=== PATIENT | male | born 1960 | race American Indian/Alaskan Native ===

== ENCOUNTER 2018-02-05 07:40 | Outpatient (CLI) | payer BC ==
--- NOTE | 2018-02-05 12:04 | Cat Scan Report ---
CT abdomen and pelvis without contrast: Prostate cancer. Transverse images are obtained from lower chest to the ischium with coronal and sagittal 2-D reformatted images. Oral but no IV contrast administered. Imaging of the visualized lung bases demonstrates some emphysematous appearing lung changes and linear scarlike deformities with mild calcified pleural thickening on the left. The abdominal and retroperitoneal organs appear unremarkable including the aorta. There is no periaortic or mesenteric adenopathy appreciated. The partially opacified bowel appears generally unremarkable except for a relatively prominent load of fecal matter in the ascending colon. Images of the pelvis demonstrates an enlarged prostate measuring approximately 4.9 x 5.4 x 7.1 cm. There is mild indentation into the mid and left base of the bladder. There is no obvious thickening of the bladder wall elsewhere. No lytic or blastic bone lesions identified. Impressions: 1. Large prostate. Focal bladder compression/involvement. 2. No metastatic lesions identified. 3. Chronic lung/pleural changes.
--- NOTE | 2018-02-05 12:10 | Nuclear Medicine Report ---
Whole body bone scan: Prostate malignancy. Following injection of radionuclide imaging of the whole body images obtained at 3 hours. There is normal activity in the urinary tract with good bone to background ratio. There is a focal area of increased radio tracer uptake involving the medial right tibial plateau and a couple areas in the left knee. 2 relatively mild increased areas of uptake are also noted involving the medial distal left leg. There appear to be more likely lie in the soft tissues. With these exceptions no abnormal activity is identified. Impression: Unexplained activity in the distal left leg. Low suspicion of metastatic disease. Recommendation: Correlate increased leg activity with any clinical findings.
== END 2018-02-05 07:41 | disposition home or self-care (01) ==
LOC: NM 07:40
PROVIDERS: ATTEND Urology
DX: C61 Malignant neoplasm of prostate (principal); N40.0 Benign prostatic hyperplasia without lower urinary tract symptoms
CPT/HCPCS: 74176; 78306; A9503

== ENCOUNTER 2018-05-10 06:21 | Inpatient (IN) | payer BC ==
--- NOTE | 2018-04-26 09:42 | Anesthesia Consultation ---
Anesthesia Consult and Med Hx Date of service: 05/10/18 - Airway Anesthetic Teeth Evaluation: Good ROM Head & Neck: Adequate Mental/Hyoid Distance: Adequate Mallampati Class: Class II Intubation Access Assessment: Good - Pulmonary Exam CTA: Yes - Cardiac Exam Cardiac Exam: No Murmur - Pre-Operative Health Status ASA Pre-Surgery Classification: ASA2, ASA3 Proposed Anesthetic Plan: General Nerve Block: TAP - Pulmonary Hx Smoking: Yes (STOPPED X 22 YRS) Hx Sleep Apnea: Yes (DX SLEEP APNEA WITH CPAP USE.) - Cardiovascular System Hx Hypertension: Yes (X 15 YRS)
[2018-04-26 10:19] LABS: Basophils % (Auto) 0.6 % (0.0-1.8); Eosinophils # (Auto) 0.2 K/mm3 (0.0-0.4); Eosinophils % (Auto) 4.4 % (0.0-4.3); Hematocrit 40.6 % (35.5-45.6); Hemoglobin 13.5 gm/dl (11.8-15.2); Lymphocytes # (Auto) 1.3 K/mm3 (1.2-5.4); Lymphocytes % (Auto) 26.3 % (13.4-35.0); Mean Corpuscular HGB Conc 33 % (32-34); Mean Corpuscular Hemoglobin 29 pg (28-32); Mean Corpuscular Volume 88 fl (84-94); Monocytes # (Auto) 0.4 K/mm3 (0.0-0.8); Monocytes % (Auto) 8.2 % (0.0-7.3); Platelet Count 210 K/mm3 (140-440); Red Blood Count 4.62 M/mm3 (3.65-5.03); Red Cell Distribution Width 13.3 % (13.2-15.2)
[2018-04-26 10:29] LABS: INR 0.94 (0.87-1.13); Partial Thromboplastin Time 24.9 Sec. (24.2-36.6)
[2018-04-26 10:38] LABS: Alanine Aminotransferase 19 units/L (7-56); BUN/Creatinine Ratio 12; Blood Urea Nitrogen 11 mg/dL (9-20); Calcium 8.9 mg/dL (8.4-10.2); Hemolysis Index 15
[~2018-05-10 06:21] MED LIST: ANCEF/STERILE WATER 2 GM/20 ML IV NR; LACTATED RINGERS 1,000 ML IV SCH; PEPCID PO NR; VERSED IV NR
[2018-05-10] MEDS ORDERED: NACL BACTERIOSTATIC INFILTRATI ONE (06:24)
[2018-05-10] MEDS ORDERED: NAROPIN O.5% ONE (07:15)
[2018-05-10] MEDS ORDERED: SUBLIMAZE ONE ×2 (07:16→07:34)
[2018-05-10] MEDS ORDERED: VERSED ONE (07:34)
[2018-05-10] MEDS ORDERED: QUELICIN ONE (07:34)
[2018-05-10] MEDS ORDERED: ZEMURON IV ONE (07:34)
[2018-05-10] MEDS ORDERED: XYLOCAINE MPF 2% ONE ×2 (07:34→10:00)
[2018-05-10] MEDS ORDERED: DIPRIVAN 10 MG/ML IV ONE (07:35)
[2018-05-10] MEDS ORDERED: CALCIUM CHLORIDE IV ONE ×2 (07:46→11:07)
[2018-05-10] MEDS ORDERED: ACD-A 500 ML IV ONE (07:46)
[2018-05-10] MEDS ORDERED: METHYLENE BLUE ONE (07:46)
[2018-05-10] MEDS ORDERED: THROMBIN (BOVINE) TP ONE ×2 (07:47→11:07)
--- NOTE | 2018-05-10 08:00 | Anesthesia Day of Surgery ---
Anesthesia Day of Surgery - Day of Surgery Patient Examined: Yes Patient H&P Reviewed: Yes Patient is NPO: Yes
[2018-05-10] MEDS ORDERED: DILAUDID IV PRN ×3 (08:01→13:45)
[2018-05-10] MEDS ORDERED: DEMEROL IV PRN ×2 (08:01→13:45)
[2018-05-10] MEDS ORDERED: TORADOL IV PRN (08:01)
[2018-05-10] MEDS ORDERED: NARCAN 0.4 MG/1 ML IV PRN ×2 (08:01→11:11)
[2018-05-10] MEDS ORDERED: ZOFRAN IV PRN ×3 (08:01→13:45)
[2018-05-10] MEDS ORDERED: ePHEDrine 50 MG/5 ML-0.9% NACL IV ONE (08:27)
[2018-05-10] MEDS ORDERED: LACTATED RINGERS 1,000 ML ONE (08:34)
[2018-05-10] MEDS ORDERED: ZOFRAN ONE (10:00)
[2018-05-10] MEDS ORDERED: PROAIR IH ONE (10:00)
[2018-05-10] MEDS ORDERED: NACL 0.9% 1000 ML 1,000 ML ONE (10:04)
[2018-05-10] MEDS ORDERED: ROBINUL ONE (10:42)
[2018-05-10] MEDS ORDERED: BLOXIVERZ ONE (10:42)
[2018-05-10] MEDS ORDERED: WATER FOR IRRIG STERILE IR ONE (11:07)
[2018-05-10] MEDS ORDERED: NACL 0.9% IR ONE (11:07)
[2018-05-10] MEDS ORDERED: ACD-A IV ONE (11:07)
--- NOTE | 2018-05-10 11:11 | Short Stay Summary ---
Short Stay Documentation Date of service: 05/10/18 - History H&P: obtained from office - Allergies and Medications Current Medications: Allergies No Known Allergies Allergy (Verified 04/22/18 17:12) Home Medications Medication Instructions Recorded Confirmed Last Taken Type Aspirin [Lo-Dose Aspirin EC] 81 mg PO DAILY 04/22/18 05/10/18 2 Weeks Ago History ~04/26/18 Atenolol [Tenormin] 50 mg PO DAILY 04/22/18 04/22/18 05/10/18 04:30 History Bicalutamide [Casodex] 50 mg PO DAILY 04/22/18 04/22/18 05/09/18 History Pantoprazole [Protonix] 40 mg PO QDAY 04/22/18 04/22/18 05/09/18 History amLODIPine/ATORVASTATIN 1 tab PO DAILY 04/22/18 04/22/18 05/10/18 04:30 History [Amlodipine-Atorvast 2.5-20 mg] Active Medications Cefazolin Sodium (Ancef/Sterile Water 2 Gm/20 Ml) 2 gm IV PREOP NR Stop: 05/10/18 23:59 Famotidine (Pepcid) 20 mg PO PREOP NR Stop: 05/10/18 12:00 Last Admin: 05/10/18 06:45 Dose: 20 mg Hydromorphone HCl (Dilaudid) 0.25 mg IV Q10MIN PRN PRN Reason: Pain, Moderate (4-6) Stop: 05/10/18 12:00 Hydromorphone HCl (Dilaudid) 0.5 mg IV Q10MIN PRN PRN Reason: Pain , Severe (7-10) Stop: 05/10/18 13:00 Lactated Ringer's (Lactated Ringers) 1,000 mls @ 100 mls/hr IV DIRECT ROSIBEL Last Admin: 05/10/18 07:00 Dose: 100 mls/hr Ketorolac Tromethamine (Toradol) 30 mg IV ONCE PRN PRN Reason: Pain, Moderate (4-6) Stop: 05/10/18 13:00 Meperidine HCl (Demerol) 25 mg IV ONCE PRN PRN Reason: Shivering Stop: 05/10/18 13:00 Midazolam HCl (Versed) 2 mg IV PREOP NR Stop: 05/10/18 18:00 Last Admin: 05/10/18 07:25 Dose: 2 mg Naloxone HCl (Narcan 0.4 Mg/1 Ml) 0.1 mg IV Q2MIN PRN PRN Reason: Res Rate </= 8 or 02 SAT < 92% Stop: 05/10/18 13:00 Ondansetron HCl (Zofran) 4 mg IV ONCE PRN PRN Reason: Nausea And Vomiting Stop: 05/10/18 13:00 - Brief post op/procedure progress note Date of procedure: 05/10/18 Pre-op diagnosis: prostate cancer (psa 34, xin 6) Post-op diagnosis: same Procedure: robotic prostatectomy Anesthesia: GETA Surgeon: STEFAN HUTCHINSON Casting Machine Operator Automatic: OSCAR SAUCEDO Estimated blood loss: other (450cc) Pathology: list (prostate) Specimen disposition: to lab Condition: stable - Hospital course Hospital course: judi joy,post op info on chart - Disposition Condition at discharge: Stable Disposition: DC-01 TO HOME OR SELFCARE Short Stay Discharge Plan Follow up with: EDILMA CANALES MD [Primary Care Provider] - 7 Days
--- NOTE | 2018-05-10 11:49 | Operative Report ---
PREOPERATIVE DIAGNOSIS: Prostate cancer ([place] 6, PSA 34). POSTOPERATIVE DIAGNOSIS: Prostate cancer ([place] 6, PSA 34). PROCEDURE: Robotic-assisted laparoscopic prostatectomy. SURGEON: Efrain Trevino MD WET MIX OPERATOR: Clinton Queen. ANESTHESIA: General. ESTIMATED BLOOD LOSS: 450 mL. FLUIDS: Crystalloid 225 of Cell Saver. COMPLICATIONS: None. DRAINS: Efraín-Ribeiro drain x 1. INDICATIONS: This 58-year-old gentleman referred by Dr. eKnneth Salazar for evaluation of an elevated PSA of 30. We repeated the PSA, it was 34. He underwent transrectal ultrasound and biopsy of his prostate 01/14/2018. He was found to have [place] 6 adenocarcinoma of the prostate. Ultrasound revealed gram gland. Staging bone scan and CT was unremarkable. We discussed options with the patient and his . Recommended not observing this cancer and therefore, after discussing other options he agreed to proceed with surgical intervention. He wanted to delay the surgery until April and he was subsequently placed on Casodex. DESCRIPTION OF PROCEDURE: The patient was taken to the operative suite, placed in a supine position. After adequate general anesthesia, placed in a modified dorsal lithotomy position, prepped and draped in a sterile fashion. Thakkar catheter was placed on the operative field. A 1 inch supraumbilical incision was made. Towel clips were placed. Anterior traction. Veress needle was placed. Drop test was negative. Opening pressure was 2 cm of water. Insufflation to 15 cm of water was performed. Abdomen was marked at the pubic symphysis, 15 cm cephalad, the pubic symphysis in the midline, and additional 9 cm lateral were marked for the robotic and helper ports. A 0-degree lens was placed under direct vision at the supraumbilical incision. Survey of the abdomen. No intraabdominal injury, no signs of metastasis. The rest of the instruments were placed under direct vision. Robotic cart was docked between the legs. The patient was then placed in exaggerated Trendelenburg position. Second arch was scored exposing the bladder, seminal vesicles and vas deferens, which were dissected out. Vas test deferens was transected. Dissection was then taken to the apex of the prostate. Attention was then taken anteriorly lateral to the lateral umbilical ligament was scored and then across the midline. Bladder flap was dropped. Pubic rami could be appreciated bilaterally. Endopelvic fascia was opened bilaterally. The patient was noted to have a pretty significant size prostate. Dorsal vein complex was controlled with 65 mm vascular stapler in the area of the vas deferens posterior to the bladder. Merrill was injected due to some just mild oozing. Dorsal vein complex was controlled. Bladder neck was opened without difficulty. Methylene blue was administered IV and the ureteral orifices could be appreciated. Posterior aspect of the bladder neck was transected. Seminal vesicles and vas deferens were retracted anteriorly exposing the lateral pedicles, which was controlled with a 45 mm vascular stapler. Neurovascular bundle could not be appreciated bilaterally. Dissection was taken to the apex of the prostate. The urethra was transected exposing the Thakkar, which was pulled back. The urethra was completely transected and the prostate was placed in the EndoCatch bag and retracted laterally. [place] stitch was placed in the 12 o'clock position of the bladder neck. Bladder neck reconstruction was performed using 2-0 Vicryl at the 7 o'clock and 5 o'clock positions. Double armed V-Loc stitch was placed at the 6 o'clock position of the bladder neck corresponding aspect of the urethra, running stitch was performed bilaterally. A new 18-Kitt[place] Thakkar catheter was placed into the urethra and the bladder. The anastomotic stitch was cinched down. Thakkar catheter was inflated with 15 mL of water. Irrigation, no leak, no clots. The V-Loc stitch was also attached to the abdominal wall to aid incontinence. Copious irrigation was performed. Adequate hemostasis achieved. Platelet rich plasma membrane was draped over the anastomosis. Platelet rich plasma fluid was injected into the pelvis as well as platelet, poor plasma injected into the pelvis. A 10 mm Efraín-Ribeiro drain was brought out through a number of the robotic port on the left side. Robot was undocked. The patient was placed in a supine position. The supraumbilical incision was extended to allow removal of the prostate. Rectus fascia was closed with #1 Vicryl in a [id number] fashion. Skin was closed with 3-0 Monocryl in interrupted fashion. Efraín-Ribeiro drain was secured with a 2-0 silk on the skin. Thakkar catheter site port was folded over and tied with #1 silk in interrupted fashion. The patient tolerated the procedure well, was extubated and taken to recovery room. He will be observed overnight and go home on Luke. JOB# [id number] SARAH/RODRÍGUEZ
[2018-05-10] MEDS ORDERED: ANCEF/NS 1 GM/50 ML 1 GM/50 ML BAG IV SCH (12:00)
[2018-05-10 13:33] LABS: Basophils % (Auto) 0.1 % (0.0-1.8); Eosinophils # (Auto) 0.1 K/mm3 (0.0-0.4); Eosinophils % (Auto) 0.8 % (0.0-4.3); Hematocrit 36.8 % (35.5-45.6); Hemoglobin 12.3 gm/dl (11.8-15.2); Lymphocytes # (Auto) 1.2 K/mm3 (1.2-5.4); Lymphocytes % (Auto) 9.9 % (13.4-35.0); Mean Corpuscular HGB Conc 33 % (32-34); Mean Corpuscular Hemoglobin 30 pg (28-32); Mean Corpuscular Volume 88 fl (84-94); Monocytes # (Auto) 0.6 K/mm3 (0.0-0.8); Monocytes % (Auto) 4.5 % (0.0-7.3); Platelet Count 196 K/mm3 (140-440); Red Blood Count 4.17 M/mm3 (3.65-5.03); Red Cell Distribution Width 13.3 % (13.2-15.2)
[2018-05-10] MEDS: MORPHINE IV PRN ×2 (13:34→17:33)
[2018-05-10 13:42] LABS: BUN/Creatinine Ratio 12; Blood Urea Nitrogen 11 mg/dL (9-20); Calcium 8.2 mg/dL (8.4-10.2); Hemolysis Index 65
--- NOTE | 2018-05-10 14:07 | Post Anesthesia Evaluation ---
- Post Anesthesia Evaluation Patient Participated: Yes Airway Patent: Yes Stable Respiratory Function: Yes Nausea/Vomiting: No Temp > 96.8F: Yes Pain Manageable: Yes Adequeate Hydration: Yes Anesthesia Complications: No
[2018-05-10] MEDS: ceFAZolin 1 GM in NACL 0.9% 20 ML IV SCH (19:00)
--- NOTE | 2018-05-10 20:28 | Consultation ---
History of Present Illness - Reason for Consult Consult date: 05/10/18 medical management Requesting physician: STEFAN HUTCHINSON - History of Present Illness History of present illness 58-year-old black male with history of prostate cancer and hypertension underwent robot-assisted prostatectomy. Postop patient is doing well. No shortness of breath or chest pain. Patient has history of hypertension. at bedside. Pain is tolerable. No fever or chills Past History Past Medical History: hypertension Past Surgical History: Other (Robotic prostatectomy ) Social history: lives with family, full code Family history: hypertension Medications and Allergies Allergies Allergy/AdvReac Type Severity Reaction Status Date / Time No Known Allergies Allergy Verified 04/22/18 17:12 Home Medications Medication Instructions Recorded Confirmed Last Taken Type Aspirin [Lo-Dose Aspirin EC] 81 mg PO DAILY 04/22/18 05/10/18 2 Weeks Ago History ~04/26/18 Atenolol [Tenormin] 50 mg PO DAILY 04/22/18 04/22/18 05/10/18 04:30 History Bicalutamide [Casodex] 50 mg PO DAILY 04/22/18 04/22/18 05/09/18 History Pantoprazole [Protonix] 40 mg PO QDAY 04/22/18 04/22/18 05/09/18 History amLODIPine/ATORVASTATIN 1 tab PO DAILY 04/22/18 04/22/18 05/10/18 04:30 History [Amlodipine-Atorvast 2.5-20 mg] Active Meds: Active Medications Acetaminophen/Hydrocodone Bitart (Loving 5/325) 2 each PO Q4H PRN PRN Reason: Pain, Moderate (4-6) Amlodipine Besylate (Norvasc) 2.5 mg PO QDAY ROSIBEL Atenolol (Tenormin) 50 mg PO QDAY ROSIBEL Atorvastatin Calcium (Lipitor) 20 mg PO QHS ROSIBEL Cefazolin Sodium (Ancef/Sterile Water 2 Gm/20 Ml) 2 gm IV PREOP NR Stop: 05/10/18 23:59 Last Admin: 05/10/18 19:23 Dose: 2 gm Hydromorphone HCl (Dilaudid) 0.5 mg IV Q10MIN PRN PRN Reason: Pain , Severe (7-10) Lactated Ringer's (Lactated Ringers) 1,000 mls @ 125 mls/hr IV DIRECT ROSIBEL Cefazolin Sodium 1 gm/ Sodium (Chloride) 20 mls @ 2 mls/min IV Q8H ROSIBEL Stop: 05/11/18 00:09 Last Admin: 05/10/18 19:00 Dose: 2 mls/min Ketorolac Tromethamine (Toradol) 15 mg IV Q6H PRN PRN Reason: Pain, Mild (1-3) Stop: 05/15/18 11:10 Meperidine HCl (Demerol) 25 mg IV ONCE PRN PRN Reason: Shivering Morphine Sulfate (Morphine) 2 mg IV Q4H PRN PRN Reason: Pain, Moderate (4-6) Last Admin: 05/10/18 17:33 Dose: 2 mg Naloxone HCl (Narcan 0.4 Mg/1 Ml) 0.1 mg IV Q2MIN PRN PRN Reason: Res Rate </= 8 or 02 SAT < 92% Ondansetron HCl (Zofran) 4 mg IV Q8H PRN PRN Reason: Nausea And Vomiting Last Admin: 05/10/18 17:33 Dose: 4 mg Ondansetron HCl (Zofran) 4 mg IV ONCE PRN PRN Reason: Nausea And Vomiting Pantoprazole Sodium (Protonix) 40 mg PO QDAY [facility] Zolpidem Tartrate (Ambien) 5 mg PO QHS PRN PRN Reason: Sleep Review of Systems All systems: negative Exam - Physical Exam Narrative exam: Lying in bed comfortably - Constitutional Vitals: Temp Pulse Resp BP Pulse Ox 98.4 F 71 16 109/71 98 05/10/18 17:10 05/10/18 17:10 05/10/18 17:10 05/10/18 17:10 05/10/18 17:10 General appearance: Present: no acute distress, well-nourished - EENT Eyes: Present: PERRL ENT: hearing intact, clear oral mucosa - Neck Neck: Present: supple, normal ROM - Respiratory Respiratory effort: normal Respiratory: bilateral: CTA - Cardiovascular Heart rate: 72 Rhythm: regular Heart Sounds: Present: S1 & S2. Absent: rub, click - Extremities Extremities: no ischemia, pulses intact, pulses symmetrical, No edema Peripheral Pulses: within normal limits - Abdominal General gastrointestinal: Present: soft, non-tender, non-distended, normal bowel sounds Male genitourinary: Present: normal - Rectal Rectal Exam: deferred - Integumentary Integumentary: Present: clear, warm, dry - Musculoskeletal Musculoskeletal: gait normal, strength equal bilaterally - Psychiatric Psychiatric: appropriate mood/affect, intact judgment & insight - Neurologic Neurologic: CNII-XII intact, moves all extremities - Allied Health Allied health notes reviewed: nursing, case management Results - Labs CBC & Chem 7: 05/10/18 13:13 05/10/18 13:13 Labs: Abnormal lab results 05/10/18 05/10/18 Range/Units 13:13 13:13 WBC 12.6 H (4.5-11.0) K/mm3 Lymph % (Auto) 9.9 L (13.4-35.0) % Seg Neutrophils % 84.7 H (40.0-70.0) % Seg Neutrophils # 10.7 H (1.8-7.7) K/mm3 Sodium 135 L (137-145) mmol/L Potassium 5.8 H (3.6-5.0) mmol/L Carbon Dioxide 20 L (22-30) mmol/L Calcium 8.2 L (8.4-10.2) mg/dL Assessment and Plan - Patient Problems (1) Hyperkalemia Current Visit: Yes Status: Acute Plan to address problem: Kayexalate and calcium chloride ordered. Recheck BMP in the morning (2) Hypertension Current Visit: Yes Status: Chronic Qualifiers: Hypertension type: essential hypertension Qualified Code(s): I10 - Essential (primary) hypertension Plan to address problem: Continue antihypertensives (3) Prostate cancer Current Visit: Yes Status: Chronic Plan to address problem: Continue Casodex as per schedule (4) GERD (gastroesophageal reflux disease) Current Visit: Yes Status: Chronic Qualifiers: Esophagitis presence: without esophagitis Qualified Code(s): K21.9 - Gastro -esophageal reflux disease without esophagitis Plan to address problem: Continue PPIs (5) DVT prophylaxis Current Visit: Yes Status: Acute Plan to address problem: On SCDs
[2018-05-10] MEDS ORDERED: KIONEX PO ONE (20:36)
[2018-05-10] MEDS ORDERED: CALCIUM CHLORIDE 1,000 MG in NACL 0.9% 100 ML IV ONE (20:37)
[2018-05-11] MEDS: MORPHINE IV PRN (00:12)
[2018-05-11] MEDS: LACTATED RINGERS 1,000 ML IV SCH ×2 (01:53→20:46)
[2018-05-11] MEDS: ceFAZolin 1 GM in NACL 0.9% 20 ML IV SCH (01:54)
[2018-05-11 05:48] LABS: Basophils % (Auto) 0.2 % (0.0-1.8); Eosinophils % (Auto) 0.6 % (0.0-4.3); Hematocrit 35.3 % (35.5-45.6); Lymphocytes # (Auto) 1.1 K/mm3 (1.2-5.4); Lymphocytes % (Auto) 14.3 % (13.4-35.0); Mean Corpuscular HGB Conc 34 % (32-34); Mean Corpuscular Hemoglobin 30 pg (28-32); Mean Corpuscular Volume 88 fl (84-94); Monocytes # (Auto) 0.6 K/mm3 (0.0-0.8); Monocytes % (Auto) 8.3 % (0.0-7.3); Platelet Count 212 K/mm3 (140-440); Red Blood Count 4.01 M/mm3 (3.65-5.03); Red Cell Distribution Width 13.8 % (13.2-15.2)
[2018-05-11 06:36] LABS: BUN/Creatinine Ratio 7; Blood Urea Nitrogen 8 mg/dL (9-20); Calcium 9.3 mg/dL (8.4-10.2); Hemolysis Index 3
--- NOTE | 2018-05-11 09:00 | Event Note ---
Date: 05/11/18 robotic prostatectomy 05-10-18 (JASPER) HTN GERD (gastroesophageal reflux disease) at bedside + nausea distended pacheco clear a/p robotic prostatectomy 05-10-18 KEEP OVERNIGHT ambulate abd series re check labs
[2018-05-11] MEDS ORDERED: ATORVASTATIN PO SCH (10:00)
[2018-05-11] MEDS ORDERED: NON-FORMULARY (Atenolol 50 MG) PO SCH (10:00)
[2018-05-11] MEDS ORDERED: AMLODIPINE PO SCH (10:00)
--- NOTE | 2018-05-11 10:30 | XRay Report ---
ABDOMEN, 2 views: History: Nausea, abdominal distention. Compared to the CT abdomen pelvis without contrast performed 02/05/18. Supine and upright views the abdomen demonstrates a very large amount of gas throughout small and large bowel loops. Although this could represent a severe ileus, a distal GI obstruction is difficult to exclude. Consider further evaluation with CT of the abdomen and pelvis. A surgical drain overlies the pelvis. IMPRESSION: Severe ileus versus distal obstruction. See above.
[2018-05-11] MEDS: PROTONIX PO SCH (11:03)
[2018-05-11] MEDS: TENORMIN PO SCH (11:04)
[2018-05-11] MEDS: NORVASC PO SCH (11:05)
--- NOTE | 2018-05-11 17:44 | Event Note ---
Date: 05/11/18 5pm robotic prostatectomy 05-10-18 (JASPER) HTN GERD (gastroesophageal reflux disease) & brother at bedside no nausea distended pacheco clear abd series - ileaus vs obstruction a/p robotic prostatectomy 05-10-18 KEEP OVERNIGHT ambulate re check labs may need ctap
--- NOTE | 2018-05-11 20:20 | Progress Note ---
Assessment and Plan Assessment and plan: --Status post robotic prostatectomy Postop care per urology,IV fluids, nothing by mouth status, supportive care --Severe ileus; possible obstruction; Supportive care, NGT intermittent suction if needed --Hyperkalemia; resolved --Hypertension; moderate control, continue current antihypertensives When necessary medications --Gastroesophageal reflux disease; IV Protonix --DVT prophylaxis; SCDs Closely monitor the patient and adjust the management as needed Plan of care reviewed with the patient and the family members at the bedside History Interval history: Patient seen and examined medical records reviewed Status post robotic prostatectomy Patient complaints of nausea or vomiting, abdominal distention Abdominal x-ray; findings consistent with severe ileus versus distal obstruction Patient looks cachectic and sick Patient is alert awake oriented 3 Vital signs reviewed Family and the bedside Hospitalist Physical - Constitutional Vitals: Temp Pulse Resp BP Pulse Ox 98.5 F 98 H 18 141/87 97 05/11/18 20:11 05/11/18 20:11 05/11/18 20:11 05/11/18 20:11 05/11/18 20:15 General appearance: Present: no acute distress, cachectic - EENT Eyes: Present: PERRL, EOM intact - Neck Neck: Present: supple, normal ROM - Respiratory Respiratory effort: normal Respiratory: bilateral: diminished, negative: rales, rhonchi, wheezing - Cardiovascular Rhythm: regular Heart Sounds: Present: S1 & S2 - Extremities Extremities: no ischemia, No edema - Abdominal General gastrointestinal: soft, tender, distended, absent bowel sounds - Integumentary Integumentary: Present: clear, warm - Psychiatric Psychiatric: appropriate mood/affect, cooperative - Neurologic Neurologic: moves all extremities Results - Labs CBC & Chem 7: 05/11/18 05:22 05/11/18 05:22 Labs: Laboratory Last Values WBC 7.6 K/mm3 (4.5-11.0) 05/11/18 05:22 RBC 4.01 M/mm3 (3.65-5.03) 05/11/18 05:22 Hgb 12.0 gm/dl (11.8-15.2) 05/11/18 05:22 Hct 35.3 % (35.5-45.6) L 05/11/18 05:22 MCV 88 fl (84-94) 05/11/18 05:22 MCH 30 pg (28-32) 05/11/18 05:22 MCHC 34 % (32-34) 05/11/18 05:22 RDW 13.8 % (13.2-15.2) 05/11/18 05:22 Plt Count 212 K/mm3 (140-440) 05/11/18 05:22 Lymph % (Auto) 14.3 % (13.4-35.0) 05/11/18 05:22 Adams % (Auto) 8.3 % (0.0-7.3) H 05/11/18 05:22 Eos % (Auto) 0.6 % (0.0-4.3) 05/11/18 05:22 Baso % (Auto) 0.2 % (0.0-1.8) 05/11/18 05:22 Lymph # 1.1 K/mm3 (1.2-5.4) L 05/11/18 05:22 Adams # 0.6 K/mm3 (0.0-0.8) 05/11/18 05:22 Eos # 0.0 K/mm3 (0.0-0.4) 05/11/18 05:22 Baso # 0.0 K/mm3 (0.0-0.1) 05/11/18 05:22 Seg Neutrophils % 76.6 % (40.0-70.0) H 05/11/18 05:22 Seg Neutrophils # 5.8 K/mm3 (1.8-7.7) 05/11/18 05:22 PT 13.0 Sec. (12.2-14.9) 04/26/18 09:45 INR 0.94 (0.87-1.13) 04/26/18 09:45 APTT 24.9 Sec. (24.2-36.6) 04/26/18 09:45 Sodium 142 mmol/L (137-145) D 05/11/18 05:22 Potassium 4.3 mmol/L (3.6-5.0) D 05/11/18 05:22 Chloride 103.2 mmol/L (98-107) 05/11/18 05:22 Carbon Dioxide 26 mmol/L (22-30) 05/11/18 05:22 Anion Gap 17 mmol/L 05/11/18 05:22 BUN 8 mg/dL (9-20) L 05/11/18 05:22 Creatinine 1.1 mg/dL (0.8-1.5) 05/11/18 05:22 Estimated GFR > 60 ml/min 05/11/18 05:22 BUN/Creatinine Ratio 7 % 05/11/18 05:22 Glucose 127 mg/dL (75-100) H 05/11/18 05:22 Calcium 9.3 mg/dL (8.4-10.2) 05/11/18 05:22 Total Bilirubin 0.40 mg/dL (0.1-1.2) 04/26/18 09:45 AST 17 units/L (5-40) 04/26/18 09:45 ALT 19 units/L (7-56) 04/26/18 09:45 Alkaline Phosphatase 54 units/L (35-129) 04/26/18 09:45 Total Protein 6.8 g/dL (6.3-8.2) 04/26/18 09:45 Albumin 4.0 g/dL (3.9-5) 04/26/18 09:45 Albumin/Globulin Ratio 1.4 % 04/26/18 09:45 Blood Type B POSITIVE 05/10/18 07:00 Antibody Screen Negative 05/10/18 07:00
[2018-05-11] MEDS: ZOFRAN IV PRN (20:51)
[2018-05-11] MEDS: TORADOL IV PRN (20:51)
[2018-05-12] MEDS: MORPHINE IV PRN ×2 (01:00→22:35)
[2018-05-12 05:28] LABS: Basophils % (Auto) 0.3 % (0.0-1.8); Eosinophils % (Auto) 0.5 % (0.0-4.3); Hematocrit 33.1 % (35.5-45.6); Lymphocytes # (Auto) 1.1 K/mm3 (1.2-5.4); Lymphocytes % (Auto) 10.8 % (13.4-35.0); Mean Corpuscular HGB Conc 33 % (32-34); Mean Corpuscular Hemoglobin 29 pg (28-32); Mean Corpuscular Volume 87 fl (84-94); Monocytes % (Auto) 9.6 % (0.0-7.3); Platelet Count 206 K/mm3 (140-440); Red Blood Count 3.79 M/mm3 (3.65-5.03); Red Cell Distribution Width 13.6 % (13.2-15.2)
[2018-05-12 05:57] LABS: BUN/Creatinine Ratio 9; Blood Urea Nitrogen 10 mg/dL (9-20); Calcium 8.8 mg/dL (8.4-10.2); Hemolysis Index 2
[2018-05-12] MEDS: LACTATED RINGERS 1,000 ML IV SCH ×2 (06:50→22:45)
--- NOTE | 2018-05-12 09:22 | XRay Report ---
ABDOMEN, 2 views: History: Repeat for ileus. Gas-filled loops of large and small bowel with large air-fluid levels throughout the abdomen are unchanged since yesterday's exam. No new acute process. IMPRESSION: No change.
[2018-05-12] MEDS ORDERED: DULCOLAX PR ONE (11:00)
[2018-05-12] MEDS: LEVAQUIN 500MG/100ML 500 MG/100 ML BAG IV SCH (11:37)
--- NOTE | 2018-05-12 13:53 | Progress Note ---
Assessment and Plan /Status post robotic prostatectomy Postop care per urology,IV fluids, nothing by mouth status, supportive care /Severe ileus; possible obstruction; Supportive care, NGT intermittent suction if needed consider CT abdomen and GS consult if not still symptomatic /Hyperkalemia; resolved /Hypertension; moderate control, continue current antihypertensives When necessary medications /Gastroesophageal reflux disease; IV Protonix /DVT prophylaxis; SCDs Closely monitor the patient and adjust the management as needed Plan of care reviewed with the patient and the family members at the bedside Brief History:58-year-old black male with history of prostate cancer and hypertension underwent robot-assisted prostatectomy. Postop patient developed abdominal distension, Abd xry showed severe ilius. Radiological data: Abdominal XRY: Compared to the CT abdomen pelvis without contrast performed 02/05/18. Supine and upright views the abdomen demonstrates a very large amount of gas throughout small and large bowel loops. Although this could represent a severe ileus, a distal GI obstruction is difficult to exclude. Consider further evaluation with CT of the abdomen and pelvis. Hospitalist Physical General appearance: Present: no acute distress, cachectic - EENT Eyes: Present: PERRL, EOM intact - Neck Neck: Present: supple, normal ROM - Respiratory Respiratory effort: normal Respiratory: bilateral: diminished, negative: rales, rhonchi, wheezing - Cardiovascular Rhythm: regular Heart Sounds: Present: S1 & S2 - Extremities Extremities: no ischemia, No edema - Abdominal General gastrointestinal: soft, tender, distended, absent bowel sounds - Integumentary Integumentary: Present: clear, warm - Psychiatric Psychiatric: appropriate mood/affect, cooperative - Neurologic Neurologic: moves all extremities Subjective Date of service: 05/12/18 Interval history: Patient seen and examined medical records reviewed Status post robotic prostatectomy Patient complaints of nausea, abdominal distention Abdominal x-ray today; findings consistent with severe ileus versus distal obstruction unchanged from yesterday Patient is alert awake oriented 3 Vital signs reviewed, NPO now Family and the bedside, updated Objective - Constitutional Vitals: Vital Signs - 12hr 05/12/18 05/12/18 05/12/18 05:26 08:15 12:30 Temperature 98.1 F 98.6 F 98.4 F Pulse Rate 98 H 89 90 Respiratory 20 20 20 Rate Blood Pressure 135/89 Blood Pressure 127/82 140/94 [Right] O2 Sat by Pulse 95 97 97 Oximetry - Labs CBC & Chem 7: 05/13/18 05:09 05/13/18 05:09 Labs: Abnormal lab results 05/12/18 05/12/18 Range/Units 04:47 04:47 Hgb 11.0 L (11.8-15.2) gm/dl Hct 33.1 L (35.5-45.6) % Lymph % (Auto) 10.8 L (13.4-35.0) % [place] % (Auto) 9.6 H (0.0-7.3) % Lymph # 1.1 L (1.2-5.4) K/mm3 [place] # 1.0 H (0.0-0.8) K/mm3 Seg Neutrophils % 78.8 H (40.0-70.0) % Seg Neutrophils # 7.8 H (1.8-7.7) K/mm3 Glucose 130 H (75-100) mg/dL
--- NOTE | 2018-05-12 15:56 | Progress Note ---
Subjective Date of service: 05/12/18 Interval history: robotic prostatectomy 05-10-18 ([facility]) HTN GERD (gastroesophageal reflux disease) + BM & flatus today at bedside no nausea distended pacheco clear repeat abd series(today) - ileus vs obstruction a/p robotic prostatectomy 05-10-18 ambulate re check labs getting better * ok to take meds with sips repeat abd series & supp in am may need ctap Objective - Constitutional Vitals: Vital Signs - 12hr 05/12/18 05/12/18 05/12/18 05:26 08:15 12:30 Temperature 98.1 F 98.6 F 98.4 F Pulse Rate 98 H 89 90 Respiratory 20 20 20 Rate Blood Pressure 135/89 Blood Pressure 127/82 140/94 [Right] O2 Sat by Pulse 95 97 97 Oximetry - Labs CBC & Chem 7: 05/12/18 04:47 05/12/18 04:47 Labs: Abnormal lab results 05/12/18 05/12/18 Range/Units 04:47 04:47 Hgb 11.0 L (11.8-15.2) gm/dl Hct 33.1 L (35.5-45.6) % Lymph % (Auto) 10.8 L (13.4-35.0) % [place] % (Auto) 9.6 H (0.0-7.3) % Lymph # 1.1 L (1.2-5.4) K/mm3 [place] # 1.0 H (0.0-0.8) K/mm3 Seg Neutrophils % 78.8 H (40.0-70.0) % Seg Neutrophils # 7.8 H (1.8-7.7) K/mm3 Glucose 130 H (75-100) mg/dL
[2018-05-12] MEDS: TORADOL IV PRN (15:59)
[2018-05-12] MEDS: NORVASC PO SCH (16:00)
[2018-05-12] MEDS: ZOFRAN IV PRN (16:00)
[2018-05-12] MEDS: PROTONIX PO SCH (16:03)
[2018-05-12] MEDS: TENORMIN PO SCH (16:03)
[2018-05-13] MEDS: AMBIEN PO PRN ×2 (02:37→23:38)
[2018-05-13] MEDS: TORADOL IV PRN (04:01)
[2018-05-13] MEDS ORDERED: DULCOLAX PR ONE (06:00)
[2018-05-13 06:25] LABS: Basophils % (Auto) 0.2 % (0.0-1.8); Eosinophils % (Auto) 0.3 % (0.0-4.3); Hemoglobin 10.3 gm/dl (11.8-15.2); Lymphocytes # (Auto) 1.1 K/mm3 (1.2-5.4); Lymphocytes % (Auto) 9.8 % (13.4-35.0); Mean Corpuscular HGB Conc 33 % (32-34); Mean Corpuscular Hemoglobin 29 pg (28-32); Mean Corpuscular Volume 88 fl (84-94); Monocytes % (Auto) 8.7 % (0.0-7.3); Platelet Count 203 K/mm3 (140-440); Red Cell Distribution Width 13.7 % (13.2-15.2)
[2018-05-13 06:46] LABS: BUN/Creatinine Ratio 13; Blood Urea Nitrogen 13 mg/dL (9-20); Calcium 8.5 mg/dL (8.4-10.2); Hemolysis Index 16
[2018-05-13] MEDS: LACTATED RINGERS 1,000 ML IV SCH ×2 (06:46→23:42)
--- NOTE | 2018-05-13 08:07 | Progress Note ---
Subjective Date of service: 05/13/18 Interval history: robotic prostatectomy 05-10-18 ([facility]) HTN GERD (gastroesophageal reflux disease) + BM & flatus today with supp - better at bedside no nausea distended pacheco clear abd series ( yesterday) - ileus vs obstruction a/p robotic prostatectomy 05-10-18 ambulate re check labs getting better * ok to take meds with sips ctap this am Objective - Constitutional Vitals: Vital Signs - 12hr 05/12/18 05/12/18 05/12/18 20:27 22:00 22:35 Temperature 97.6 F Pulse Rate 85 Pulse Rate [ 78 Left Radial] Respiratory 20 17 Rate Blood Pressure 136/85 O2 Sat by Pulse 98 98 Oximetry 05/12/18 05/13/18 05/13/18 23:05 00:42 04:01 Temperature 97.6 F Pulse Rate 79 Pulse Rate [ Left Radial] Respiratory 17 17 Rate Blood Pressure 117/70 O2 Sat by Pulse 94 Oximetry 05/13/18 05/13/18 04:31 05:50 Temperature 98.1 F Pulse Rate 77 Pulse Rate [ Left Radial] Respiratory 17 17 Rate Blood Pressure 119/88 O2 Sat by Pulse 97 Oximetry - Labs CBC & Chem 7: 05/13/18 05:09 05/13/18 05:09 Labs: Abnormal lab results 05/13/18 05/13/18 Range/Units 05:09 05:09 RBC 3.50 L (3.65-5.03) M/mm3 Hgb 10.3 L (11.8-15.2) gm/dl Hct 31.0 L (35.5-45.6) % Lymph % (Auto) 9.8 L (13.4-35.0) % [place] % (Auto) 8.7 H (0.0-7.3) % Lymph # 1.1 L (1.2-5.4) K/mm3 [place] # 1.0 H (0.0-0.8) K/mm3 Seg Neutrophils % 81.0 H (40.0-70.0) % Seg Neutrophils # 8.9 H (1.8-7.7) K/mm3 Sodium 147 H (137-145) mmol/L Glucose 115 H (75-100) mg/dL
--- NOTE | 2018-05-13 08:21 | Cat Scan Report ---
CT ABDOMEN PELVIS WITHOUT CONTRAST: HISTORY: Abdominal distention. COMPARISON: 02/05/18. TECHNIQUE: Helical CT in 1.25mm intervals without IV contrast. Sagittal and coronal reconstructions. FINDINGS: Lung bases: Normal heart size. There is mild subpleural atelectasis in both lower lobes. Mild chronic left pleural calcifications are unchanged. Liver: Normal. Biliary system: Normal. Pancreas: Normal. Spleen: Normal. Kidneys/ureters/bladder: The kidneys are normal size, contour and attenuation. No focal renal lesion, nephrolithiasis or hydronephrosis. The ureters are normal course and caliber. The bladder is decompressed with a Thakkar catheter. Prostatectomy changes are suspected since the previous exam, correlate with history. A surgical drain is in place in the anterior pelvis but not within a fluid collection. Adrenal glands: Normal. Aorta: Normal. Intestines: There is mild gaseous distention and scattered fluid levels throughout the small bowel loops and colon. No transition point is appreciated. No focal inflammation or obvious mass. The overall pattern is most consistent with a diffuse ileus. Appendix: Normal. Ascites: None. Adenopathy: None. Musculoskeletal: Intact. No fracture or bony lesion is identified. IMPRESSION: Findings are most compatible with a diffuse ileus. See above.
[2018-05-13] MEDS: NORVASC PO SCH (09:41)
[2018-05-13] MEDS: PROTONIX PO SCH (09:41)
[2018-05-13] MEDS: LEVAQUIN 500MG/100ML 500 MG/100 ML BAG IV SCH (09:41)
[2018-05-13] MEDS: TENORMIN PO SCH (09:42)
--- NOTE | 2018-05-13 11:31 | Progress Note ---
Assessment and Plan /Status post robotic prostatectomy Postop care per urology, supportive care /Severe ileus; Supportive care, had BM today CT abdomen/pelvis wo contrast showed Findings are most compatible with a diffuse ileus. Repeat xry tomorrow, plan to start clear liquid diet /Hyperkalemia; resolved /Hypertension; moderate control, continue current antihypertensives When necessary medications /Gastroesophageal reflux disease; IV Protonix /DVT prophylaxis; SCDs Closely monitor the patient and adjust the management as needed Plan of care reviewed with the patient and the family members at the bedside Brief History:58-year-old black male with history of prostate cancer and hypertension underwent robot-assisted prostatectomy. Postop patient developed abdominal distension, Abd xry showed severe ilius. Radiological data: Abdominal XRY: Compared to the CT abdomen pelvis without contrast performed 02/05/18. Supine and upright views the abdomen demonstrates a very large amount of gas throughout small and large bowel loops. Although this could represent a severe ileus, a distal GI obstruction is difficult to exclude. Consider further evaluation with CT of the abdomen and pelvis. CT abdomen/pelvis wo contrast: Findings are most compatible with a diffuse ileus. Hospitalist Physical General appearance: Present: no acute distress, cachectic - EENT Eyes: Present: PERRL, EOM intact - Neck Neck: Present: supple, normal ROM - Respiratory Respiratory effort: normal Respiratory: bilateral: diminished, negative: rales, rhonchi, wheezing - Cardiovascular Rhythm: regular Heart Sounds: Present: S1 & S2 - Extremities Extremities: no ischemia, No edema - Abdominal General gastrointestinal: soft, distended, hypoactive bowel sounds - Integumentary Integumentary: Present: clear, warm - Psychiatric Psychiatric: appropriate mood/affect, cooperative - Neurologic Neurologic: moves all extremities Subjective Date of service: 05/13/18 Interval history: Patient seen and examined medical records reviewed Status post robotic prostatectomy Patient is alert awake oriented 3 Vital signs reviewed, NPO now Family and the bedside, updated Had BM today, ambulating Objective - Constitutional Vitals: Vital Signs - 12hr 05/13/18 05/13/18 05/13/18 00:42 04:01 04:31 Temperature 97.6 F Pulse Rate 79 Respiratory 17 17 Rate Blood Pressure 117/70 O2 Sat by Pulse 94 Oximetry 05/13/18 05/13/18 05/13/18 05:50 07:36 09:42 Temperature 98.1 F 98.1 F Pulse Rate 77 76 76 Respiratory 17 18 Rate Blood Pressure 119/88 138/90 138/90 O2 Sat by Pulse 97 91 Oximetry - Labs CBC & Chem 7: 05/13/18 05:09 05/13/18 05:09 Labs: Abnormal lab results 05/13/18 05/13/18 Range/Units 05:09 05:09 RBC 3.50 L (3.65-5.03) M/mm3 Hgb 10.3 L (11.8-15.2) gm/dl Hct 31.0 L (35.5-45.6) % Lymph % (Auto) 9.8 L (13.4-35.0) % [place] % (Auto) 8.7 H (0.0-7.3) % Lymph # 1.1 L (1.2-5.4) K/mm3 [place] # 1.0 H (0.0-0.8) K/mm3 Seg Neutrophils % 81.0 H (40.0-70.0) % Seg Neutrophils # 8.9 H (1.8-7.7) K/mm3 Sodium 147 H (137-145) mmol/L Glucose 115 H (75-100) mg/dL
--- NOTE | 2018-05-13 17:29 | Event Note ---
Date: 05/13/18 5pm at bedside + flatus, + BM feels better Abdominal XRY: Compared to the CT abdomen pelvis without contrast performed 02/05/18. Supine and upright views the abdomen demonstrates a very large amount of gas throughout small and large bowel loops. Although this could represent a severe ileus, a distal GI obstruction is difficult to exclude. Consider further evaluation with CT of the abdomen and pelvis. CT abdomen/pelvis wo contrast: Findings are most compatible with a diffuse ileus. clear liquids abb series in am possible tomorrow
[2018-05-13] MEDS: NORCO 5/325 PO PRN (23:37)
[2018-05-13] MEDS: ZOFRAN IV PRN (23:37)
[2018-05-14] MEDS: MORPHINE IV PRN (05:14)
[2018-05-14] MEDS: ZOFRAN IV PRN (05:14)
[2018-05-14] MEDS: NORVASC PO SCH ×2 (08:46→10:00)
[2018-05-14] MEDS: PROTONIX PO SCH ×2 (08:46→10:00)
[2018-05-14] MEDS: TENORMIN PO SCH ×2 (08:46→10:00)
[2018-05-14] MEDS: LEVAQUIN 500MG/100ML 500 MG/100 ML BAG IV SCH (09:05)
[2018-05-14 11:39] VITALS: BP 114/80
--- NOTE | 2018-05-14 12:20 | XRay Report ---
Portable supine abdomen: Abdominal distention. Comparison is made to prior exam of May 12. The patient continues to have a generalizing increased bowel gas pattern involving both small and large bowel. No gross evidence of free air. There is a drainage tube in the pelvis. Impression: Persistent ileus pattern with little if any change compared to May 12.
--- NOTE | 2018-05-14 13:15 | Discharge Summary ---
Providers - Providers Date of Admission: 05/11/18 10:37 Date of discharge: 05/14/18 Attending physician: STEFAN HUTCHINSON 05/10/18 Consult to Case Management [CONS] Routine Services Needed at Discharge: Home Health Services Notified:: cm notified Additional Physician Instructions: eval for pacheco care and daily needs 05/10/18 11:11 Consult to Physician [CONS] Routine Comment: Consulting Provider: CARIN GONZALEZ Physician Instructions: Reason For Exam: hypertension Primary care physician: EDILMA CANALES Hospitalization Reason for admission: prostate cancer Condition: Stable Pertinent studies: ctap & abd series - ileus Procedures: robotic prostatectomy Hospital course: did well ileus slow to resolve feels better wants to go home robotic prostatectomy 05-10-18 ([facility]) HTN GERD (gastroesophageal reflux disease) + BM & flatus today with supp - better at bedside no nausea marni removed pacheco clear abd series ( yesterday) - ileus vs obstruction a/p robotic prostatectomy 05-10-18 ambulate Disposition: TO HOME OR SELFCARE - Discharge Diagnoses (1) Prostate cancer Status: Chronic Core Measure Documentation - Palliative Care Palliative Care/ Comfort Measures: Not Applicable - Core Measures Any of the following diagnoses?: none - VTE Discharge Requirements Has pt received <5 days of overlap therapy or INR<2.0: No Anticoagulant overlap therapy prescribed at discharge: No Contraindication No Overlap Therapy order at DC: Medical Contraindication - Acute [place] Discharge Requirements Aspirin at discharge: No Reason for no aspirin on DC: Surgical contraindication TITO/ARB for LVSD if EF <40%: Not Applicable Reason for no TITO/ARB: Medical contraindication Beta marciano at discharge: No Reason for no beta marciano on DC: Medical contraindication Statin for LDL = or >100 mg/dl on DC: Not Applicable Reason for no statin on DC: Surgical contraindication - Heart Failure Discharge Requirements TITO/ARB for LVSD if EF <40%: Not Applicable Reason for no TITO/ARB: Medical contraindication Beta marciano at discharge: No Reason for no beta marciano on DC: Medical contraindication - Stroke Discharge Requirements Statin for LDL = or >70 mg/dl on DC: Not Applicable Reason for no statin on DC: Medical Contraindication Anticoag for atrial fib/atrial flutter: Not Applicable Reason for no anticoag for AF/F on DC: Medical Contraindication Antithrombotic for ischemic stroke: No Reason for no antithrombotic on DC: Medical Contraindication Exam - Constitutional Vitals: Temp Pulse Resp BP Pulse Ox 97.8 F 79 18 114/80 95 05/14/18 11:29 05/14/18 11:29 05/14/18 11:29 05/14/18 11:29 05/14/18 11:29 General appearance: Present: no acute distress, well-nourished - EENT Eyes: Present: PERRL ENT: hearing intact, clear oral mucosa - Neck Neck: Present: supple, normal ROM - Respiratory Respiratory effort: normal Respiratory: bilateral: CTA - Cardiovascular Heart Sounds: Present: S1 & S2. Absent: rub, click - Extremities Extremities: pulses symmetrical, No edema Peripheral Pulses: within normal limits - Abdominal General gastrointestinal: Present: soft, non-tender, non-distended, normal bowel sounds Male genitourinary: Present: normal - Integumentary Integumentary: Present: clear, warm, dry - Musculoskeletal Musculoskeletal: gait normal, strength equal bilaterally - Psychiatric Psychiatric: appropriate mood/affect, intact judgment & insight - Neurologic Neurologic: CNII-XII intact, moves all extremities Plan Activity: advance as tolerated Diet: other (soups) Wound: open to air Follow up with: EDILMA CANALES MD [Primary Care Provider] - 7 Days
[2018-05-14] MEDS: NORCO 5/325 PO PRN (13:53)
--- NOTE | 2018-05-14 14:09 | Progress Note ---
Assessment and Plan /Status post robotic prostatectomy Postop care per urology, supportive care /Severe ileus; resolved Supportive care, had BM today CT abdomen/pelvis wo contrast showed Findings are most compatible with a diffuse ileus. tolerating diet, had BM yesterday and today /Hyperkalemia; resolved /Hypertension; moderate control, continue current antihypertensives When necessary medications /Gastroesophageal reflux disease; placed on IV Protonix /DVT prophylaxis; SCDs Plan of care reviewed with the patient and the family members at the bedside. Being discharged today. Brief History:58-year-old black male with history of prostate cancer and hypertension underwent robot-assisted prostatectomy. Postop patient developed abdominal distension, Abd xry showed severe ilius. Radiological data: Abdominal XRY: Compared to the CT abdomen pelvis without contrast performed 02/05/18. Supine and upright views the abdomen demonstrates a very large amount of gas throughout small and large bowel loops. Although this could represent a severe ileus, a distal GI obstruction is difficult to exclude. Consider further evaluation with CT of the abdomen and pelvis. CT abdomen/pelvis wo contrast: Findings are most compatible with a diffuse ileus. Hospitalist Physical General appearance: Present: no acute distress, cachectic - EENT Eyes: Present: PERRL, EOM intact - Neck Neck: Present: supple, normal ROM - Respiratory Respiratory effort: normal Respiratory: bilateral: no wheezes, negative: rales, rhonchi, - Cardiovascular Rhythm: regular Heart Sounds: Present: S1 & S2 - Extremities Extremities: no ischemia, No edema - Abdominal General gastrointestinal: soft, soft, + bowel sounds - Integumentary Integumentary: Present: clear, warm - Psychiatric Psychiatric: appropriate mood/affect, cooperative - Neurologic Neurologic: moves all extremities Subjective Date of service: 05/14/18 Interval history: Patient seen and examined medical records reviewed Status post robotic prostatectomy Patient is alert awake oriented 3 Vital signs reviewed,tolerating diet Family and the bedside, updated Had BM today, ambulating, getting ready for discharge Objective - Constitutional Vitals: Vital Signs - 12hr 05/14/18 05/14/18 05/14/18 04:34 05:14 07:04 Temperature 97.7 F 97.3 F L Pulse Rate 89 77 Respiratory 20 18 18 Rate Blood Pressure 144/96 126/87 O2 Sat by Pulse 97 94 Oximetry 05/14/18 05/14/18 08:46 11:29 Temperature 97.8 F Pulse Rate 77 79 Respiratory 18 Rate Blood Pressure 126/87 114/80 O2 Sat by Pulse 95 Oximetry - Labs CBC & Chem 7: 05/13/18 05:09 05/13/18 05:09
== END 2018-05-14 15:00 | disposition home or self-care (01) | DRG 707 ==
LOC: OR 06:21 → 3B-SURG 11:11 → OBSVTOIN 05-11 10:37
PROVIDERS: ADMIT Urology; ATTEND Urology
PROC: 0VT04ZZ Resection of Prostate, Percutaneous Endoscopic Approach (ICD-10-PCS; principal; 2018-05-10)
PROC: 0VT34ZZ Resection of Bilateral Seminal Vesicles, Percutaneous Endoscopic Approach (ICD-10-PCS; 2018-05-10)
PROC: 0TQC4ZZ Repair Bladder Neck, Percutaneous Endoscopic Approach (ICD-10-PCS; 2018-05-10)
PROC: 0VBQ4ZZ Excision of Bilateral Vas Deferens, Percutaneous Endoscopic Approach (ICD-10-PCS; 2018-05-10)
PROC: 8E0W4CZ Robotic Assisted Procedure of Trunk Region, Percutaneous Endoscopic Approach (ICD-10-PCS; 2018-05-10)
DX: C61 Malignant neoplasm of prostate (principal); K56.7 Ileus, unspecified; E87.5 Hyperkalemia; Z87.891 Personal history of nicotine dependence; I10 Essential (primary) hypertension; G47.30 Sleep apnea, unspecified; Z79.82 Long term (current) use of aspirin; Z79.899 Other long term (current) drug therapy; Z82.49 Family history of ischemic heart disease and other diseases of the circulatory system; K21.9 Gastro-esophageal reflux disease without esophagitis
CPT/HCPCS: 36415; 64450; 74019; 74176; 80048; 80053; 83735; 84100; 85025; 85610; 85730; 86850; 86900; 86901; 88309; 88342; A4217; A9270-GY; G0378; J0330; J0690; J1885; J1956; J2250; J2270; J2405; J2704; J2710; J2795; J3010; J7030; J7120; Q9968